=== PATIENT | male | born 1935 ===

== ENCOUNTER 2016-10-27 22:03 | Emergency (ER) | payer MEDICARE ==
[2016-10-27 22:25] VITALS: RESP 18; TEMP 97.7; O2SAT 97
[2016-10-27 23:01] LABS: RBC URINE 175 /hpf (0-3); URINE BACTERIA RARE (<OCC); URINE BILIRUBIN NEGATIVE (NEGATIVE); URINE BLOOD 3+ (NEGATIVE); URINE COLOR Yellow (YELLOW); URINE GLUCOSE (UA) NORMAL (Normal); URINE KETONE NEGATIVE (NEGATIVE); URINE LEUKOCYTE ESTERASE NEG Leu/uL (Negative); URINE PROTEIN 1+ mg/dL (NEGATIVE); URINE UROBILINOGEN NORMAL mg/dL (0.2-1.0); WBC URINE 3 /hpf (0-5)
[2016-10-28] MEDS ORDERED: Sodium Chloride 0.9% 1,000 ML IV ONE (00:16)
[2016-10-28 00:40] LABS: BASO % 0.4 % (0.0-2.0); EOS # 0.1 K/uL (0.0-0.7); EOS % 2.2 % (0.0-4.0); HEMATOCRIT 33.8 % (35.0-51.0); LYMPH # 1.8 K/uL (1.0-4.3); LYMPH % 29.8 % (20.0-40.0); MEAN CELL VOLUME 94.4 fL (80.0-94.0); MEAN CORPUSCULAR HEMOGLOBIN 30.9 pg (27.0-31.0); MEAN CORPUSCULAR HGB CONC 32.7 g/dL (33.0-37.0); MEAN PLATELET VOLUME 8.4 fL (7.2-11.7); MONO # 0.8 K/uL (0.0-0.8); MONO % 13.1 % (0.0-10.0); RED CELL DISTRIBUTION WIDTH 14.9 % (11.5-14.5); WHITE BLOOD COUNT 5.9 K/uL (4.8-10.8)
[2016-10-28 00:49] LABS: CHLORIDE 91 mmol/L (98-107); POTASSIUM 4.7 mmol/L (3.6-5.2); SODIUM 131 mmol/L (132-148)
[2016-10-28 00:52] LABS: ALB/GLOB RATIO 1.6 (1.0-2.1); ALKALINE PHOSPHATASE 53 U/L (38-126); ALT/SGPT 16 U/L (21-72); AST/SGOT 15 U/L (17-59); BILIRUBIN,TOTAL 0.3 mg/dL (0.2-1.3); BLOOD UREA NITROGEN 23 mg/dL (9-20); CARBON DIOXIDE 27 mmol/L (22-30); GFR AFRICAN-AMERICAN > 60; GLUCOSE,RANDOM 126 mg/dL (75-110); TOTAL PROTEIN 6.1 g/dL (6.3-8.3)
[2016-10-28 00:53] LABS: CALCIUM 8.8 mg/dl (8.6-10.4)
[2016-10-28 02:10] VITALS: BP 108/64; PULSE 68
--- NOTE | 2016-10-28 02:30 | C.PDOC ---
History Of Present Illness Pt c/o hematuria. Time Seen by Provider: 10/27/16 23:59 Chief Complaint (Nursing): Male Genitourinary History Per: Patient Onset/Duration Of Symptoms: Hrs (today) Current Symptoms Are (Timing): Still Present Severity: Moderate Associated Symptoms: Urinary Symptoms Alleviating Factors: None Additional History Per: Prior Records Past Medical History Reviewed: Historical Data, Nursing Documentation, Vital Signs Vital Signs: Last Vital Signs Temp 97.7 F 10/28/16 02:09 Pulse 68 10/28/16 02:09 Resp 18 10/28/16 02:09 BP 108/64 10/28/16 02:09 Pulse Ox 97 10/28/16 02:09 - Medical History PMH: Benign Prostatic Hyperplasia, HTN, Kidney Stones Other Surgeries: Prostate "seeds" Family History: States: Unknown Family Hx - Social History Hx Alcohol Use: No Hx Substance Use: No - Immunization History Hx Tetanus Toxoid Vaccination: No Hx Influenza Vaccination: No Hx Pneumococcal Vaccination: No Review Of Systems Except As Marked, All Systems Reviewed And Found Negative. Constitutional: Negative for: Fever, Weakness Cardiovascular: Negative for: Chest Pain Respiratory: Negative for: Shortness of Breath Gastrointestinal: Positive for: Abdominal Pain. Negative for: Vomiting, Diarrhea Genitourinary: Positive for: Hematuria Musculoskeletal: Negative for: Neck Pain Skin: Negative for: Rash Neurological: Negative for: Weakness, Numbness, Seizures, Altered Mental Status Physical Exam - Physical Exam Appears: Non-toxic, No Acute Distress Skin: Normal Color, Warm, Dry, No Rash Head: Atraumatic, Normacephalic Eye(s): bilateral: PERRL, EOMI Neck: Normal ROM, Supple Cardiovascular: Rhythm Regular Respiratory: Normal Breath Sounds, No Accessory Muscle Use Gastrointestinal/Abdominal: Soft, No Tenderness Back: No CVA Tenderness Extremity: Normal ROM Neurological/Psych: Oriented x3, Normal Motor, Normal Sensation ED Course And Treatment - Laboratory Results Result Diagrams: 10/28/16 00:29 10/28/16 00:29 Interpretation Of Abnormal: Hematuria O2 Sat by Pulse Oximetry: 97 Pulse Ox Interpretation: Normal - CT Scan/US CT abd/pelvis Other Rad Studies (CT/US): Read By Radiologist, Radiology Report Reviewed CT/US Interpretation: nonobstructing right intrarenal calculus. otherwise unremarkable. Progress Note: Pt feels much better and wants to go home. Reassessment Condition: Improved Progress - Interventions Interventions:: Observation, Intravenous fluid - Data Reviewed Data Reviewed: Lab, Diagnostic imaging, Old records - Patient Status Patient status: Mostly improved - Continuity of Care Discussed patient case with:: Patient, ED Nurse - Patient Plan Patient Plan: Discharge, F/U with PCP, Continue present meds Disposition Counseled Patient/Family Regarding: Studies Performed, Diagnosis, Need For Followup, Rx Given - Disposition Referrals: Jimbo Seay Jr., MD [Staff Provider] - Disposition: HOME/ ROUTINE Disposition Time: 02:34 Condition: IMPROVED Additional Instructions: Drink plenty of fluids. Follow up with your Urologist within 1-2 days. Return to the ER if you develop fever, pain, trouble urinating, worsening of symptoms or if you have any other concerns. Prescriptions: Ciprofloxacin [Cipro] 1 tab PO BID #14 tab Instructions: Acute Hematuria (ED) Print Language: VIET[place]ESE - Clinical Impression Clinical Impression: Hematuria
--- NOTE | 2016-10-28 08:56 | CT ---
PROCEDURE: CT Abdomen and Pelvis without intravenous or oral contrast HISTORY: Hematuria COMPARISON: None. TECHNIQUE: Technique Contiguous axial images of the abdomen and pelvis without intravenous or oral contrast. Radiation dose: Total exam DLP = 370.32. MGy-cm. FINDINGS: LOWER THORAX: Unremarkable. LIVER: No suspicious findings. Multiple simple hepatic cysts identified. GALLBLADDER AND BILE DUCTS: Unremarkable. PANCREAS: Unremarkable. No ductal dilatation. SPLEEN: Unremarkable. No splenomegaly. ADRENALS: Unremarkable. KIDNEYS AND URETERS: Nonobstructing right renal calculus disease. Lower pole calculus measures 5.5 mm. Adjacent focal scarring identified. Left kidney: Multiple simple renal cysts. Negative study for calculus disease. BLADDER: Unremarkable. No calculus. REPRODUCTIVE: Unremarkable. 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 APPENDIX: No abnormalities to suggest acute appendicitis. No right lower quadrant inflammatory processes identified. STOMACH AND BOWEL: Unremarkable. No obstruction. No gross mural thickening. PERITONEUM: Unremarkable. No significant fluid collection. No free air. LYMPH NODES: Unremarkable. No enlarged lymph nodes. VASCULATURE: Unremarkable. No aortic aneurysm. BONES: No acute fracture. OTHER FINDINGS: None . IMPRESSION: Nonobstructing lower pole calculus right kidney. Maximum diameter 5.5 mm. Negative study for obstructive uropathy or other acute/significant pathologic process. Additional benign and/or incidental findings described above. Concordant results (preliminary interpretation) provided by [facility]. Procedure Completed: 00:52. Preliminary ([facility]) Report: Dictated and Authenticated: 01:14. Final Interpretation: 08:55. October 28, 2016.
== END 2016-10-28 02:48 | disposition home or self-care (01) ==
LOC: C.ER 22:03
DX: R31.9 Hematuria, unspecified (principal)
CPT/HCPCS: 74176; 80053; 81001; 85025; 85610; 85730; 87086; 96360; 99284; J7040